=== PATIENT | female | born 1980 | race Caucasian/White ===

== ENCOUNTER → 2021-05-03 13:25 | Outpatient (CLI) | payer OTHER, SELFPAY ==
--- NOTE | ~2021-05-03 | MM_ITS ---
EXAMINATION: MM screening reinaldo BI w neida HISTORY: Screening TECHNIQUE: Craniocaudal and mediolateral oblique 3-D tomosynthesis images were obtained and synthetic 2-D images were generated. CAD analysis was submitted and interpreted. COMPARISON: No prior mammogram is available for comparison at this institution. BREAST PARENCHYMAL COMPOSITION: There are scattered areas of fibroglandular density. FINDINGS: There is no evidence of suspicious mass, calcification, or architectural distortion to sugg est malignancy in either breast. There has been no suspicious interval change. IMPRESSION: 1. No mammographic evidence of malignancy. 2. Recommend routine screening mammography in one year. BI-RADS Category 1: Negative Reviewed, dictated and finalized at location A. O DEVELOPER
== END ==
PROVIDERS: Visit Provider Obstetrics & Gynecology
DX: Z12.31 Encounter for screening mammogram for malignant neoplasm of breast (principal)
CPT/HCPCS: 77063; 77067

== ENCOUNTER 2021-06-26 12:20 | Outpatient (CLI) | payer OTHER, SELFPAY | END 2021-06-26 12:21 | disposition home or self-care (01) | LOC: ANHSURGERY 12:27 | PROVIDERS: Visit Provider Obstetrics & Gynecology | DX: Z01.812 Encounter for preprocedural laboratory examination (principal); D25.9 Leiomyoma of uterus, unspecified | CPT/HCPCS: 36415; 86850; 86900; 86901 ==

== ENCOUNTER 2021-07-03 00:48 | Day surgery (SDC) | payer OTHER, SELFPAY ==
[2021-06-22 10:24] VITALS: BMI 27.4
--- NOTE | 2021-06-22 10:36 | PC.NURSE ---
Report to the Outpatient Waiting Room, entrance under the green pavilion located off [facility], at time 6:00 on date 07/03/21. OR Time: 7:30. - You and your visitor will be asked a series of questions to screen for COVID 19 for your protection. - A mask is required within the hospital. One visitor will be allowed to accompany the patient into the hospital. Patients visitor will be instructed to remain with patient at all times or leave the building. We will allow the visitor to come back to the postoperative area when patient is ready. Preoperative COVID Testing Requirements: No COVID Test needed if: (proof is required; if not received patient will have Rapid Test prior to entry) - Patient has received COVID Vaccine at least 14 days prior to procedure date or - Patient has positive COVID test result within last 90 days of surgery date. COVID Test needed if above criteria is not met Patients may have clear liquids (water, carbonated beverages, clear teas, apple juice) until 3 hours prior to surgery (4:30) with a maximum of 20 ounces. - No food from midnight until time of surgery Take the following medications with a SIP of water the morning of surgery: NONE Medications to discontinue per physician: VITAMINS/SUPPLEMENTS Date to take last dose: 06/29/21 Please no make-up, nail fijian, hairspray, perfume, deodorant, or body powder the day of surgery. No jewelry (including any body piercings) or valuables the day of surgery, leave them at home. Please take a shower or bath the night before, or the morning of, surgery with an antibacterial soap. Wear comfortable, loose fitting clothing. - Jewelry must be removed prior to entering the operating room. Rings and piercings that are not removed may be cut off. - The hospital will not accept responsibility for valuables. - Please leave all valuables, including medications, at home the day of surgery. If you are going home after surgery, a licensed motor bus driver must drive you home. - NO public transportation without another adult. - We recommend that an adult stay with you for 24 hours following discharge. - We also recommend that you do not drive, make important decision, drink alcoholic beverages, or take any drugs that were not prescribed by your health care provider for at least 24 hours after your discharge time. Follow any additional instructions given to you from your surgeon. Telephone instructions given to WINSOME ALLAN and asked if any additional questions and then verbalized understanding. Patient advised to call surgeon office or pre surgery nurse liaison [phone] if any additional questions.
[2021-07-03] VITALS (11 sets, daily range): BP systolic 107–142; BP diastolic 56–91; PULSE 85–126; RESP 16–22; TEMP 36.5–37; O2SAT 94–100
--- NOTE | 2021-07-03 06:39 | P.PNAN_ITS ---
Anes - Initial Pre Proc Eval Procedure: Operation Date: 07/03/21 07:30 Proposed Procedures p Robotic Assisted Total Laparoscopic Hysterectomy with Bilateral Salpingectomy - Heidi Campbell MD s Cystoscopy for HEAD OF STOCK Procedure - Heidi Campbell MD Date/Time: 07/03/21 06:39 Surgeon: Heidi Campbell MD Pre Op Diagnosis: Uterine Fibroid Patient Data Age: 40 Gender: F Height: 1.63 m Weight: 72.57 kg Allergies Allergy/AdvReac Type Severity Reaction Status Date / Time No Known Allergies Allergy Verified 06/22/21 10:22 Home Medications Medication Instructions Recorded Confirmed Type citalopram 40 mg tablet 40 mg PO HS 05/30/21 06/22/21 History norethindrone 1.5 mg-ethinyl 1 tablet PO HS 05/30/21 06/22/21 History estradiol 30 mcg(21)/iron 75 mg(7) tablet cetirizine [Zyrtec] 10 mg PO DAILY 06/22/21 06/22/21 History multivitamin 1 tablet PO DAILY 06/22/21 06/22/21 History Patient hx anesthesia problems: none Family hx anesthesia problems: none Results Review: All pre-operative results and documents have been reviewed as part of the pre-operative evaluation. 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 Surgical History Surgical History H/O LEEP 2011 hgsil+hpv 2007 Hgsil + hpv Family History Family History Grandparent Breast cancer Other Breast cancer Social History Social History Smoking status: Never smoker Alcohol intake: current Alcohol use details: 2/MONTH Substance use: never Substance use type: does not use Living arrangements: with family Gender identity (if verbalized by the patient): Female Spiritual care concerns: No Anes - Eval Final PreProcedure Day of Procedure 07/03/21 06:39 Patient weight: overweight Heart: regular rate and rhythm Lungs: clear to auscultation Airway: Mallampati scale class II Neurological: alert and oriented Last oral intake: >/= 8 hours ASA classification: II Emergent: no Anesthetic plan: proceed Anesthesia type and monitoring: general ETT and standard monitoring Results Review: All pre-operative results and documents have been reviewed as part of the pre-operative evaluation. Informed Consent: The patient's anesthetic plan and its attendant risks and benefits were discussed with the patient/family/POA. Questions were solicited and answers provided to the satisfaction of the patient/family/POA.
--- NOTE | 2021-07-03 06:57 | PM.IMHP ---
H&P: HPI History of Present Illness Date/Time: 07/03/21 06:50 Stephanie is a 40yo P2002, LMP June 2021 who present for scheduled hysterectomy. She has a known fibroid uterus causing significant AUB. She had a normal pap in 02/2019, normal endometrial biopsy 05/2021. She has been on OCP's to try and help with the AUB but reports irregular bleeding with passage of clots and significant cramping. She is tired of the pain and bleeding and ready to proceed with hysterectomy. Chief Complaint: abnormal uterine bleeding Review of Systems Constitutional: Constitutional: Denies fever(s) Cardiovascular: Cardiovascular: Denies chest pain and Denies rapid heart rate Respiratory: Respiratory: Denies cough and Denies dyspnea Gastrointestinal: Gastrointestinal: Denies nausea and Denies vomiting Genitourinary: Genitourinary: Reports abnormal menses, Reports abnormal vaginal bleeding, Reports menorrhagia and Reports dysmenorrhea Neurologic: Denies dizziness and Denies headache(s) [facility] Past Medical History Medical History Anxiety Depression HPV (human papilloma virus) anogenital infection 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 Surgical History Surgical History H/O LEEP 2011 hgsil+hpv 2007 Hgsil + hpv Family History Family History Grandparent Breast cancer Other Breast cancer Social History Social History Smoking status: Never smoker Alcohol intake: current Alcohol use details: 2/MONTH Substance use: never Substance use type: does not use Living arrangements: with family Gender identity (if verbalized by the patient): Female Spiritual care concerns: No Meds Home Medications and Allergies Home Medications Medication Instructions Recorded Confirmed Type citalopram 40 mg tablet 40 mg PO HS 05/30/21 06/22/21 History norethindrone 1.5 mg-ethinyl 1 tablet PO HS 05/30/21 06/22/21 History estradiol 30 mcg(21)/iron 75 mg(7) tablet cetirizine [Zyrtec] 10 mg PO DAILY 06/22/21 06/22/21 History multivitamin 1 tablet PO DAILY 06/22/21 06/22/21 History Allergies Allergy/AdvReac Type Severity Reaction Status Date / Time No Known Allergies Allergy Verified 06/22/21 10:22 Exam Const: General: cooperative, healthy appearing, comfortable and no acute distress Resp: Effort & Inspection: normal respiratory effort Cardio: Rate: regular rate GI: Inspection: non-distended GI Palp: No abdominal tenderness : Other: deferred to OR Skin: General skin exam: normal color Neuro: General: patient oriented x3 Extrem: General: normal to inspection Psych: Appearance: grossly normal Affect: normal affect Attitude: cooperative H&P: Results Labs Labs: Pap smear (12/2018): NILM/HPV negative EMB (05/2021): negative for hyperplasia or malignancy Imaging SEAT COVERER US (02/2021): uterus 11.9x6.7x5.9cm, endometrium 10mm, 3 fibroid (superior, posterior mid, right lateral; 3.2cm), normal ovaries: Radiologist's impression: Uterus 11.9x6.7x5.9cm, endometrium 10mm, 3 fibroids (superior, posterior mid, right lateral (largest measuring 3.2cm), normal ovaries Assessment and Plan Assessment and plan (1) Fibroid uterus: Qualifiers: Uterine leiomyoma location: intramural Qualified Code(s): D25.1 - Intramural leiomyoma of uterus Code(s): D25.9 - Leiomyoma of uterus, unspecified Status: Acute (2) Abnormal uterine bleeding: Code(s): N93.9 - Abnormal uterine and vaginal bleeding, unspecified Status: Acute Additional Plan - Failed medical management; options discussed in office and patient desires to proceed with surgical management - Proceed with robotic assisted total laparoscopic hysterectomy, bilateral salpingectomy, and diagnostic
--- NOTE | 2021-07-03 06:57 | WPDHPUPDATE1 ---
History and Physical Update Update Date/Time: 07/03/21 06:57 History and Physical has been reviewed, including an updated exam of the patient. There are NO changes in the patient's condition. Risks, benefits, and alternatives have been discussed and questions answered. Patient agrees to proceed with procedure.
[2021-07-03] MEDS: ACETAMINOPHEN 500 MG TABLET 1000 MG PO ×3 (07:08→21:11)
[2021-07-03] MEDS: LACTATED RINGERS 1,000 ML 30 ML IV CONT ×2 (07:08→10:19)
[2021-07-03] MEDS: KETOROLAC 15 MG/ML VIAL (*BKC) IV PUSH (07:09)
[2021-07-03] MEDS: SCOPOLAMINE 1.5 MG PATCH TRANSDERM (07:11)
[2021-07-03] MEDS: ceFAZolin 2 GM/D5W 50 ML 2 GM/50 ML BAG IVPB (07:25)
[2021-07-03 07:32] LABS: Hemoglobin 14.3 g/dL (12.0-15.0); Mean Corpuscular Hemoglobin 30.4 pg (26-34); Mean Corpuscular Volume 89.2 fl (80-100); Mean Platelet Volume 9.6 fl (7.4-10.4); Platelet Count Result 303 k/mm3 (150-375); Red Blood Count 4.71 M/mm3 (4.2-5.4); Red Cell Distribution Width 13.6 % (11.5-14.5); White Blood Count 10.5 K/mm3 (4.5-10.0)
[2021-07-03] MEDS: LIDO 1%/EPINEPHRINE 1:100,000 50 ML VIAL 30 ML INFILTRATE (10:00)
[2021-07-03] MEDS: fentaNYL CITRATE INJ (*CRX) 100 MCG/2 ML VIAL 25 MCG IV PUSH ×6 (10:19→10:36)
--- NOTE | 2021-07-03 10:23 | W.PM.PROC2 ---
Procedure Note - Detailed Date of Procedure 07/03/21 Pre-op Diagnosis Uterine Fibroid Abnormal uterine bleeding Post-op Diagnosis Other (omental and uterine adhesions) Procedure Performed Robotic assisted total laparscopic hysterectomy, bilateral salpingectomy, lysis of adhesions, and cystoscopy Surgeon Heidi Campbell MD [employer] Engineer Mauro Huffman Anesthesia General Indications Stephanie is a 40yo P2002, LMP June 2021 who present for scheduled hysterectomy. She has a known fibroid uterus (3 fibroids measuring ~3.5cm; superior, right lateral, and posterior) causing significant AUB. She had a normal pap in 02/2019, normal endometrial biopsy 05/2021. She has been on OCP's to try and help with the AUB but reports irregular bleeding with passage of clots and significant cramping. She is tired of the pain and bleeding and ready to proceed with hysterectomy. Findings Normal cervix; intraabdominal-- multiple omental adhesions to the anterior mid abdominal wall, uterine fundus adhered to the anterior abdominal wall; 3 fibroids noted, ~3.5cm each (superiorly, right lateral mid, and posterior); normal bilateral tubes and ovaries. Bladder filled w/o issues and no abnormalities visualized; bilateral ureteral efflux noted. Hemaderm powder used on cuff. Good hemostasis at end of . Description of Procedure Stephanie was taken to the operating room where she was placed under general anesthesia without issues. She received 2 g Ancef. She was then prepped and draped in the usual sterile fashion in the dorsal lithotomy position with her legs in low Alton stirrups and her arms tucked at her side. A time-out was performed. My attention was turned down below where a chiu catheter was placed. A bivalve speculum was placed within the vagina. The cervix was easily identified and the anterior lip of the cervix was grasped with single-tooth tenaculum. The uterus was then sounded to 9cm. The cervix was serially dilated to allow for the VICKIE uterine manipulator; which was placed w/o issue (8cm tip with 2.5cm cervical ring). My gloves were changed and attention was then turned to the abdomen. A supraumbilical incision was made, and a 5 mm trocar was placed under direct visualization. Once intra-abdominal placement was confirmed, the abdomen was insufflated with carbon dioxide gas. An abdominal survey was performed and the above findings were noted. Two additional ports were placed on each side under direct visualization without issues. Due to the extensive omental adhesions; a LigaSure was used to take them down after verification that no bowel was included in the adhesions. The adhesions were taken down without issue. The patient was then placed in deep Trendelenburg, with the legs slightly lowered. The robot was then docked. The instruments were placed intra-abdominally under direct visualization. I then un-scrubbed and went to the robotic console. The uterine adhesions were taken down using the monopolar scissors without complication and minimal bleeding. I then started my hysterectomy on the right side. The ureter was easily identified transperitoneally and well out of the surgical field. The fallopian tube was elevated and the mesosalpinx was coagulated and transected. The round ligament was clamped, coagulated, and transected. The uterine ovarian artery was then serially clamped, coagulated, and transected with good hemostasis. The broad ligament was then dissected anteriorly and posteriorly skeletonizing the uterine artery. The bladder flap was then developed on the right side and carried around the left, anteriorly. The uterine artery was then serially clamped and coagulated. Once the vessel was adequately coagulated, it was then transected with good hemostasis. The same procedure was then performed on the left side without complications. The uterus was noted to be devascularized. The bladder flap was verified out of the surgical field and the colpotomy was started anteriorly and c
[2021-07-03] MEDS: HYDROmorphone HCL INJ (*CRX) 1 MG/ML SYR 0.5 MG IV PUSH ×4 (10:43→11:10)
[2021-07-03] MEDS: diphenhydrAMINE HCl INJ 50 MG/ML VIAL 25 MG IV PUSH (11:23)
--- NOTE | 2021-07-03 11:42 | PC.NURSE ---
This patient, Stephanie Park, was received from PACU on 07/03/21 at 1142. Patient/family oriented to unit policies and routines
[2021-07-03] MEDS: KETOROLAC 30 MG/ML VIAL (*BKC) IV PUSH ×2 (12:13→18:20)
[2021-07-03] MEDS: DOCUSATE SODIUM 100 MG CAPSULE PO (18:21)
[2021-07-03] MEDS: oxyCODONE HCL (*CRX) 5 MG TAB IR PO (19:01)
[2021-07-03] MEDS: SIMETHICONE 80 MG TAB.CHEW PO (19:15)
[2021-07-03] MEDS: CITALOPRAM HYDROBROMIDE 20 MG TABLET 40 MG PO (19:47)
[2021-07-04] MEDS: IBUPROFEN 600 MG TABLET PO (03:16)
[2021-07-04 03:17] VITALS: BP 113/66; PULSE 90; RESP 16; TEMP 37; O2SAT 97
[2021-07-04] MEDS: ACETAMINOPHEN 500 MG TABLET 1000 MG PO (03:17)
[2021-07-04 05:24] LABS: Basophils Percent Auto 0.1 % (0.2-1.2); Hematocrit 37.2 % (37.0-47.0); Hemoglobin 12.7 g/dL (12.0-15.0); Immature Granulocyte Absolute 0.12 K/mm3 (0.00-0.031); Immature Granulocyte Percent A 0.7 % (0-0.5); Lymphocytes Absolute Auto 1.99 K/mm3 (0.9-3.2); Mean Corpuscular HGB Conc 34.1 g/dl (32-36); Mean Corpuscular Hemoglobin 30.7 pg (26-34); Mean Corpuscular Volume 89.9 fl (80-100); Mean Platelet Volume 9.6 fl (7.4-10.4); Monocytes Percent Auto 5.7 % (2.6-8.5); Neutrophils Absolute Auto 14.9 K/mm3 (1.3-6.7); Neutrophils Percent Auto 82.5 % (45.5-73.1); Platelet Count Result 273 k/mm3 (150-375); Red Blood Count 4.14 M/mm3 (4.2-5.4); Red Cell Distribution Width 14.2 % (11.5-14.5); White Blood Count 18.1 K/mm3 (4.5-10.0)
[2021-07-04 05:32] LABS: Anion Gap 4 mmol/L (8-16); Blood Urea Nitrogen 10 mg/dL (7-17); Calcium 8.2 mg/dL (8.4-10.2); Carbon Dioxide 23 mmol/L (22-30); Chloride 105 mmol/L (98-107); Estimated CRCL calculation 91 ml/min; Estimated Glomerular Filt Rate > 60; Glucose 104 mg/dL (65-110); Sodium 132 mmol/L (137-145)
--- NOTE | 2021-07-04 07:19 | PM.GYNPNOP ---
[employer]CHANDIS[employer] - A/P Postoperative Procedures: Procedures Operation Date: 07/03/21 07:30 Actual Procedure Side Surgeon p Robotic Assisted Total Laparoscopic Hysterectomy with Bilateral Salpingectomy,Lysis of Adhestions Bilateral Heidi Campbell MD s Cystoscopy for [employer] Procedure Not Applicable Heidi Campbell MD Postoperative day: 1 Postoperative status: doing well Postoperative plan: routine post-op care, discharge and other (pelvic rest, no heavy lifting, take meds as prescribed, incision care, and ER return precautions all discussed) Time Spent With Patient Time: Total time spent is greater than 50% in coordination of care (as documented) at patient's floor/unit and/or counseling patient: Time with patient: 15 - 25 minutes [employer]- PN:Subj Post-Op Subjective Date/time seen: 07/04/21 07:04 POD#1 s/p RA-TLMeghan, BS, JORDAN, rodríguezo Stephanie reports doing well today. Her pain is controlled with PO pain meds. She has voided multiple times. She has tolerated regular diet. She has ambulated w/o signs of anemia. She has passed gas. She denies any vaginal discharge/bleeding. Ready to go home. Review of Systems Constitutional: Constitutional: Denies chills, Denies fever(s) and Denies headache(s) Eyes: Eyes: Denies change in vision ENT: Denies dizziness and Denies headache(s) Cardiovascular: Cardiovascular: Denies chest pain, Denies palpitations and Denies dyspnea Respiratory: Respiratory: Denies cough and Denies dyspnea Gastrointestinal: Gastrointestinal: Denies nausea and Denies vomiting Genitourinary: Comments: no vaginal bleeding Neurologic: Denies dizziness and Denies headache(s) Endocrine: Endocrine: Denies palpitations Exam Const: General: cooperative, comfortable and no acute distress Orientation/consciousness: patient oriented x3 Resp: Effort & Inspection: normal respiratory effort Auscultation: clear to auscultation bilaterally Cardio: Rate: regular rate GI: Inspection: non-distended and incision (x5; covered w/ dermabond) GI Palp: Yes abdominal tenderness (appropriate) and Yes Soft to palpation Auscultation: normal bowel sounds Skin: General skin exam: normal color Neuro: General: patient oriented x3 Extrem: General: normal to inspection Psych: Appearance: grossly normal Affect: normal affect Attitude: cooperative [employer] - PN: Obj Data Vital Signs Vital Signs: Vital Signs - 24 hr 07/03/21 10:10 07/03/21 10:25 07/03/21 10:40 Temperature 98.0 F Pulse Rate 126 H 119 H 120 H Respiratory Rate 20 22 H 16 Blood Pressure 142/64 H 126/74 118/56 L Pulse Oximetry 98 95 96 07/03/21 10:55 07/03/21 11:10 07/03/21 11:25 Temperature Pulse Rate 118 H 119 H 120 H Respiratory Rate 18 20 16 Blood Pressure 117/64 118/62 118/63 Pulse Oximetry 96 97 95 07/03/21 11:45 07/03/21 15:45 07/03/21 18:25 Temperature 98.1 F 97.7 F 98.4 F Pulse Rate 98 98 97 Respiratory Rate 16 16 16 Blood Pressure 113/65 107/71 119/73 Pulse Oximetry 94 98 100 07/03/21 23:20 07/04/21 03:17 Temperature 98.2 F 98.6 F Pulse Rate 85 90 Respiratory Rate 16 16 Blood Pressure 110/70 113/66 Pulse Oximetry 98 97 Intake/Output Intake/Output: Intake & Output 07/01/21 07/02/21 07/03/21 07/04/21 23:59 23:59 23:59 23:59 Intake Total 3990 100 Output Total 1500 450 Balance 2490 -350 Meds/Results Medications: Active Medications Generic Name Dose Route Start Last Admin Trade Name Felix PRN Reason Stop Dose Admin Acetaminophen 1,000 mg 07/03/21 13:00 07/04/21 03:17 Acetaminophen 500 Mg Tablet PO 1,000 mg Q6H RYAN Administration Citalopram Hydrobromide 40 mg 07/03/21 21:00 07/03/21 19:47 Citalopram Hydrobromide 20 Mg Tablet PO 40 mg HS RYAN Administration Docusate Sodium 100 mg 07/03/21 17:00 07/03/21 18:21 Docusate Sodium 100 Mg Capsule PO 100 mg BID RYAN Administration Ibuprofen 600 mg 07/04/21 06:00 07/04/21 03:16 Ibuprofen 600 Mg Tablet PO 600 mg Q6H RYAN Administrati
[2021-07-04 08:05] VITALS: BP 116/70; PULSE 88; RESP 18; TEMP 36.5; O2SAT 98
== END 2021-07-04 09:30 | disposition home or self-care (01) ==
LOC: ANHSURGERY 10:20 → ANHOB2 12:04
PROVIDERS: Visit Provider Obstetrics & Gynecology
PROC: (CPT 58571; principal; 2021-07-03 07:30)
PROC: 0TJB8ZZ Inspection of Bladder, Via Natural or Artificial Opening Endoscopic (ICD-10-PCS; CPT 52000; 2021-07-03 07:30)
DX: D25.1 Intramural leiomyoma of uterus (principal); D25.2 Subserosal leiomyoma of uterus; N80.0 Endometriosis of uterus; N73.6 Female pelvic peritoneal adhesions (postinfective); N93.9 Abnormal uterine and vaginal bleeding, unspecified; R10.2 Pelvic and perineal pain; A63.0 Anogenital (venereal) warts; F41.8 Other specified anxiety disorders
CPT/HCPCS: 58571; S2900; 36415; 80048; 85025; 85027; 86850; 86900; 86901; 88307; 99199; A9270; J0690; J1170; J1200; J1885; J2250; J2370; J2405; J2704; J2710; J3010; J7030; J7120

== ENCOUNTER 2021-07-20 12:12 | Emergency (ER) | payer OTHER, SELFPAY ==
--- NOTE | ~2021-07-20 | CT_ITS ---
EXAMINATION: CT abdomen pelvis w con EXAM DATE: 07/20/2021 14:02 INDICATION: postop vaginal bleeding, hysterectomy 2 weeks ago. TECHNIQUE: Spiral CT of the abdomen and pelvis was performed following intravenous injection of 100 m L Omnipaque 350. Axial, coronal and sagittal images of the abdomen and pelvis were reviewed. The do se-length product (DLP) for this examination was 478.59 mGy-cm. The exposure was tailored according to patient size (auto mA exposure control), and iterative reconstruction (ASIR) was used as additiona l dose reduction technique. There is no prior study for comparison. FINDINGS: Small amount of pelvic inflammation, within expected limits for relatively recent hysterect roseanna. No pelvic hematoma. Small amount of gas and fluid identified in the vaginal cavity. The liver, spleen, adrenal glands and pancreas are unremarkable. Gallbladder is unremarkable. No biliary obstr uction. Portal and splenic veins are patent. Kidneys enhance symmetrically. There is no hydronephr osis. The bladder is unremarkable. There is no retroperitoneal or pelvic lymphadenopathy. The appendix is normal. The stomach and small bowel are unremarkable. There is expected amount of c olonic stool. No free intraperitoneal gas. The heart is normal in size. There are no pericardial or pleural effusions. The lung bases are unremarkable. The bones are unremarkable. IMPRESSION: 1. Small amount of pelvic fat stranding within normal limits for recent hysterectomy. 2. Small amount of vaginal cavity gas and fluid. Reviewed, dictated and finalized at location A. IMPRESSION: 1. Small amount of pelvic fat stranding within normal limits for recent hyster ectomy. 2. Small amount of vaginal cavity gas and fluid.
[2021-07-20 12:29] VITALS: BP 138/89; PULSE 88; RESP 18; TEMP 36.2; O2SAT 97
--- NOTE | 2021-07-20 13:05 | ED.GENADULT ---
HPI - General Adult General Chief complaint: Vaginal Bleeding Stated complaint: post hyst bleeding Time Seen by Provider: 07/20/21 12:18 History of Present Illness HPI narrative: Patient is a 40-year-old female who presents to the ER with vaginal bleeding. Ongoing over the last day. The blood is dark and comes out of her whenever she sits on the toilet and urinates. She has no pelvic pain or cramping. Patient has not been filling any pads. Patient is 2 weeks status post robotic assisted hysterectomy by Dr. Campbell. Patient denies fevers or chills or sweats. No urinary symptoms. Contacted her cigarette vendor to referred her to the ER for a CT scan. Related Data Home Medications Medication Instructions Recorded Confirmed sertraline 50 mg PO DAILY 07/20/21 07/20/21 Allergies Allergy/AdvReac Type Severity Reaction Status Date / Time No Known Allergies Allergy Verified 07/20/21 12:32 Review of Systems Review of Systems: All systems reviewed & are unremarkable except as noted in HPI and below Constitutional: Constitutional: Denies chills, Denies fever(s) and Denies weakness ENT: Denies nasal congestion and Denies sore throat Respiratory: Respiratory: Denies cough, Denies dyspnea and Denies wheezing Gastrointestinal: Gastrointestinal: Denies abdominal pain, Denies nausea and Denies vomiting Genitourinary: Genitourinary: Reports abnormal vaginal bleeding, Denies nocturia, Denies dysuria, Denies pelvic pain and Denies vaginal discharge PMFSH Past Medical History Medical History Anxiety Depression HPV (human papilloma virus) anogenital infection 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 Surgical History Surgical History H/O LEEP 2011 hgsil+hpv 2007 Hgsil + hpv Family History Family History Grandparent Breast cancer Other Breast cancer Social History Social History Smoking status: Never smoker Alcohol intake: current Alcohol use details: 2/MONTH Substance use: never Substance use type: does not use Gender identity (if verbalized by the patient): Female Spiritual care concerns: No Exam Narrative: GENERAL: Well-appearing, well-nourished, and in no acute distress. HEAD: Normocephalic, atraumatic. CHEST: Clear to auscultation. No respiratory distress. HEART: Regular rate and rhythm. Normal peripheral pulses. ABDOMEN: Soft, nontender, nondistended. EXTREMITIES: Normal range of motion. No edema. SKIN: Warm, dry, no rash. NEURO: Alert and oriented x3. PSYCH: Normal mood and affect. Course Course Emergency Course: Discussed case with patient's cigarette vendor. No further work-up required. Patient aware of diagnosis and treatment plan. Vital Signs Vital signs: Vital Signs Temperature 97.1 F L 07/20/21 12:29 Pulse Rate 88 07/20/21 12:29 Respiratory Rate 18 07/20/21 12:29 Blood Pressure 138/89 07/20/21 12:29 Pulse Oximetry 97 07/20/21 12:29 Temperature 97.1 F L 07/20/21 12:29 Pulse Rate 88 07/20/21 12:29 Respiratory Rate 18 07/20/21 12:29 Blood Pressure 138/89 07/20/21 12:29 Pulse Oximetry 97 07/20/21 12:29 Medical Decision Making Vital Signs Vital Signs: Vital Signs Temperature 97.1 F L 07/20/21 12:29 Pulse Rate 88 07/20/21 12:29 Respiratory Rate 18 07/20/21 12:29 Blood Pressure 138/89 07/20/21 12:29 Pulse Oximetry 97 07/20/21 12:29 Temperature 97.1 F L 07/20/21 12:29 Pulse Rate 88 07/20/21 12:29 Respiratory Rate 18 07/20/21 12:29 Blood Pressure 138/89 07/20/21 12:29 Pulse Oximetry 97 07/20/21 12:29 Lab Data Result diagrams: 07/20/21 13:17 07/20/21 13:17 Labs: Lab Results 07/20/21 07/20/21 Range/Units 13:17 13:17 WBC 8.9 (4.5-
[2021-07-20 13:24] LABS: Basophils Absolute Auto 0.1 K/mm3 (0.0-0.1); Basophils Percent Auto 1.1 % (0.2-1.2); Eosinophils Absolute Auto 0.3 K/mm3 (0-0.3); Eosinophils Percent Auto 3.7 % (0-4.4); Hematocrit 41.8 % (37.0-47.0); Hemoglobin 14.3 g/dL (12.0-15.0); Immature Granulocyte Absolute 0.02 K/mm3 (0.00-0.031); Immature Granulocyte Percent A 0.2 % (0-0.5); Lymphocytes Absolute Auto 3.31 K/mm3 (0.9-3.2); Lymphocytes Percent Auto 37.2 % (18.3-44.2); Mean Corpuscular HGB Conc 34.2 g/dl (32-36); Mean Corpuscular Hemoglobin 30.6 pg (26-34); Mean Corpuscular Volume 89.3 fl (80-100); Mean Platelet Volume 9.3 fl (7.4-10.4); Monocytes Absolute Auto 0.6 K/mm3 (0.1-0.6); Monocytes Percent Auto 6.6 % (2.6-8.5); Neutrophils Absolute Auto 4.6 K/mm3 (1.3-6.7); Neutrophils Percent Auto 51.2 % (45.5-73.1); Platelet Count Result 387 k/mm3 (150-375); Red Blood Count 4.68 M/mm3 (4.2-5.4); Red Cell Distribution Width 13.2 % (11.5-14.5); White Blood Count 8.9 K/mm3 (4.5-10.0)
[2021-07-20 13:34] LABS: Anion Gap 8 mmol/L (8-16); Blood Urea Nitrogen 13 mg/dL (7-17); Calcium 9.3 mg/dL (8.4-10.2); Carbon Dioxide 24 mmol/L (22-30); Chloride 105 mmol/L (98-107); Estimated CRCL calculation 11 ml/min; Estimated Glomerular Filt Rate > 60; Glucose 96 mg/dL (65-110); Potassium 4.1 mmol/L (3.4-5.0); Sodium 137 mmol/L (137-145)
[2021-07-20 15:29] VITALS: BP 136/88; PULSE 86; RESP 18; O2SAT 100
== END 2021-07-20 15:30 | disposition home or self-care (01) ==
PROVIDERS: Emergency Provider Emergency Medicine
DX: N99.820 Postprocedural hemorrhage of a genitourinary system organ or structure following a genitourinary system procedure (principal); F41.9 Anxiety disorder, unspecified; F32.A Depression, unspecified
CPT/HCPCS: 36415; 74177; 80048; 85025; 99284; Q9967

== ENCOUNTER → 2022-07-11 14:11 | Outpatient (CLI) | payer OTHER, SELFPAY ==
--- NOTE | ~2022-07-11 | MM_ITS ---
EXAMINATION: MM screening reinaldo BI w neida HISTORY: Screening TECHNIQUE: Craniocaudal and mediolateral oblique 3-D tomosynthesis images were obtained and synthetic 2-D images were generated. CAD analysis was submitted and interpreted. COMPARISON: 05/03/2021 BREAST PARENCHYMAL COMPOSITION: The breasts are heterogeneously dense, which may obscure small masses . FINDINGS: There is no evidence of suspicious mass, calcification, or architectural distortion to sugg est malignancy in either breast. There has been no suspicious interval change. IMPRESSION: 1. No mammographic evidence of malignancy. 2. Recommend routine screening mammography in one year. BI-RADS Category 1: Negative Reviewed, dictated and finalized at location A.
== END ==
PROVIDERS: Visit Provider Obstetrics & Gynecology
DX: Z12.31 Encounter for screening mammogram for malignant neoplasm of breast (principal)
CPT/HCPCS: 77063; 77067

== ENCOUNTER 2023-07-29 14:56 | Outpatient (CLI) | payer OTHER, SELFPAY ==
--- NOTE | ~2023-07-29 | MM_ITS ---
EXAMINATION: MM screening reinaldo BI w neida HISTORY: Screening TECHNIQUE: Craniocaudal and mediolateral oblique 3-D tomosynthesis images were obtained and synthetic 2-D images were generated. CAD analysis was submitted and interpreted. COMPARISON: Comparison to multiple prior studies sequentially, with oldest reviewed study dated 05/03. BREAST PARENCHYMAL COMPOSITION: The breasts are heterogeneously dense, which may obscure small masses . FINDINGS: There is no evidence of suspicious mass, calcification, or architectural distortion to sugg est malignancy in either breast. There has been no suspicious interval change. IMPRESSION: 1. No mammographic evidence of malignancy. 2. Recommend routine screening mammography in one year. BI-RADS Category 1: Negative Reviewed, dictated and finalized at location B.
== END 2023-07-29 14:57 ==
PROVIDERS: PCP Obstetrics & Gynecology; Visit Provider Obstetrics & Gynecology
DX: Z12.31 Encounter for screening mammogram for malignant neoplasm of breast (principal)
CPT/HCPCS: 77063; 77067

== ENCOUNTER 2024-07-30 10:50 | Outpatient (CLI) | payer OTHER, SELFPAY ==
--- NOTE | ~2024-07-30 | MM_ITS ---
EXAMINATION: MM screening renialdo BI w neida HISTORY: Screening TECHNIQUE: Craniocaudal and mediolateral oblique 3-D tomosynthesis images were obtained and synthetic 2-D images were generated. CAD analysis was submitted and interpreted. COMPARISON: Comparison to multiple prior studies sequentially, with oldest reviewed study dated 05/03. BREAST PARENCHYMAL COMPOSITION: Dense: The breasts are extremely dense, which lowers the sensitivity of mammography. FINDINGS: There is no evidence of suspicious mass, calcification, or architectural distortion to sugg est malignancy in either breast. There has been no suspicious interval change. IMPRESSION: 1. No mammographic evidence of malignancy. 2. Recommend routine screening mammography in one year. BI-RADS Category 1: Negative Reviewed, dictated and finalized at location B.
== END 2024-07-30 10:51 | disposition home or self-care (01) ==
PROVIDERS: PCP Nurse Practitioner; Visit Provider Nurse Practitioner
DX: Z12.31 Encounter for screening mammogram for malignant neoplasm of breast (principal)
CPT/HCPCS: 77063; 77067